=== PATIENT | male | born 1975 | race African-American/Black ===

== ENCOUNTER 2023-04-27 11:49 | Observation (INO) | payer OTHER, SELFPAY ==
--- NOTE | ~2023-04-27 | US_ITS ---
US breast LT complete DATE: 04/27/2023 14:03 INDICATION: Induration and erythema of left subareolar area for 3 to 4 days TECHNIQUE: Real-time and color flow imaging of the subareolar area of the left breast COMPARISON: None FINDINGS: There is a large irregular up to 3.4 cm wide 2 cm deep complex mixed cystic and hypoechoic solid lesion in the subareolar area of the left breast, with through transmission and posterior enhan cement and some surrounding hypervascularity on color flow imaging. The appearance is most consistent with abscess; differential diagnosis includes hematoma. IMPRESSION: Large complex lesion in the subareolar area, suspicious for abscess Dr. Mccall telephoned the ultrasound findings on 04/27/2023 at 1418 hours to emergency room physician Bassem norton Nurse Practitioner. Reviewed, dictated and finalized at [facility]. Reviewed, dictated and finalized at [facility]. IMPRESSION: Large complex lesion in the subareolar area, suspicious for abscess Dr. Mccall telephoned the ultrasound findings on 04/27/2023 at 1418 hours to emerge ncy room physician Radha Nurse Practitioner.
--- NOTE | ~2023-04-27 | US_ITS ---
US guide abscess drainage DATE: 04/28/2023 14:12 INDICATION: Breast abscess TECHNIQUE: The purpose of the procedure, technique and potential complications were discussed with th e patient. The patient indicated understanding and gave consent. Timeout procedure confirmed appropriate patient, birthdate and procedure and sidedness. The skin of the left breast was prepared with sterile Betadine solution. Sterile drapes were applied. Using ultrasound for guidance, 2 different sites were percutaneous access to the abscess cavity were identified. Local anesthetic was a deburr operator the skin. A 16-gauge needle with connecting tube and syri nge was introduced into the 2 different sites, with advancement of the needle into multiple areas at each needle site, with aspiration as possible, yielding several CC of tannish pus. Some hypoechoic ti ssue or debris within the lesion was balloted with the needle but was unable to be aspirated.. Ultrasound imaging upon completion of the aspiration revealed diminished size with incomplete resolut ion of the abscess collection And requested that the fluid be sent laboratory for culture and sensitivity. IMPRESSION: Percutaneous partial drainage of left breast abscess; culture and sensitivity pending Reviewed, dictated and finalized at [facility] Reviewed, dictated and finalized at [facility]. IMPRESSION: Percutaneous partial drainage of left breast abscess; culture and s ensitivity pending
[2023-04-27 12:03] VITALS: BP 135/92; PULSE 89; RESP 17; TEMP 36.5; O2SAT 100
[2023-04-27] MEDS: HYDROcodone/acetaminophen (*CRX) 5-325 MG TABLET 1 TAB PO (14:29)
[2023-04-27 14:45] LABS: Basophils Absolute Auto 0.1 K/mm3 (0.0-0.1); Basophils Percent Auto 0.8 % (0.2-1.2); Eosinophils Absolute Auto 0.1 K/mm3 (0-0.3); Eosinophils Percent Auto 1.3 % (0-4.4); Hematocrit 47.3 % (42.0-52.0); Hemoglobin 15.8 g/dL (14.0-18.0); Immature Granulocyte Absolute 0.03 K/mm3 (0.00-0.031); Immature Granulocyte Percent A 0.5 % (0-0.5); Lymphocytes Percent Auto 28.2 % (18.3-44.2); Mean Corpuscular HGB Conc 33.4 g/dl (32-36); Mean Corpuscular Hemoglobin 33.3 pg (26-34); Mean Corpuscular Volume 99.6 fl (80-100); Mean Platelet Volume 9.9 fl (7.4-10.4); Monocytes Absolute Auto 0.6 K/mm3 (0.1-0.6); Neutrophils Absolute Auto 3.8 K/mm3 (1.3-6.7); Neutrophils Percent Auto 59.2 % (45.5-73.1); Platelet Count Result 207 k/mm3 (150-375); Red Blood Count 4.75 M/mm3 (4.6-6.20); Red Cell Distribution Width 15.6 % (11.5-14.5); White Blood Count 6.4 K/mm3 (4.5-10.0)
--- NOTE | 2023-04-27 14:51 | ED.GENADULT ---
HPI - General Adult General Chief complaint: Skin/Abscess/Foreign Body Stated complaint: possible bug bite Time Seen by Provider: 04/27/23 12:19 History of Present Illness HPI narrative: Yefri Albarran is a 47 y/o male who presents with reports of swelling/ pain to his left breast for 3 days. He denies any trauma/ injury. He thought he might of been bit by something but it has continued to get worse. He reports of sever pain with light touch. Denies any nipple drainage, denies known history of breast CA, denies noticing any drainage from the area since it started. Related Data Home Medications Medication Instructions Recorded Confirmed albuterol sulfate 90 mcg/actuation 2 puff inhalation Q6-8H PRN 04/27/23 04/27/23 aerosol inhaler Shortness Of Breath Or Wheezing aspirin 81 mg chewable tablet 81 mg PO DAILY 04/27/23 04/27/23 atorvastatin 20 mg tablet 20 mg PO DAILY 04/27/23 04/27/23 clopidogrel 75 mg tablet 75 mg PO DAILY 04/27/23 04/27/23 gabapentin 600 mg tablet 300 mg PO BID 04/27/23 04/27/23 isosorbide mononitrate 30 mg 30 mg PO DAILY 04/27/23 04/27/23 tablet,extended release 24 hr metoprolol tartrate 100 mg tablet 100 mg PO BID 04/27/23 04/27/23 Allergies Allergy/AdvReac Type Severity Reaction Status Date / Time No Known Allergies Allergy Verified 04/27/23 17:47 Review of Systems Review of Systems: CONSTITUTIONAL: Denies fever, chills, or sweats. EYES: Denies visual changes, redness, or discharge. ENT: Denies rhinorrhea, congestion, sore throat, or otalgia. CARDIOVASCULAR: Denies chest pain, palpitations, or edema. RESPIRATORY: Denies cough or dyspnea. GASTROINTESTINAL: Denies abdominal pain, nausea, vomiting, or diarrhea. GENITOURINARY: Denies dysuria or hematuria. SKIN: Complains of painful swelling to left breast that he woke up with about 3 days ago. MUSCULOSKELETAL: Denies back pain, joint pain, or myalgia. NEUROLOGIC: Denies headache, numbness, dizziness, or weakness. PSYCHIATRIC: Denies anxiety or depression. [facility] Social History Social History Smoking status: Current some day smoker Tobacco type: cigarettes Alcohol intake: current Drinks per week: 3 Substance use: current Substance use type: marijuana Lack of Transportation: YES Lack of Food: Sometimes True Current Housing: I Do Not Have Housing Concerned About Future Housing: YES Difficulty Paying Gas/Electric Bills: YES Difficulty Paying for Meds: YES Currently Unemployed: YES Education: High School Diploma/GED Difficulty w/ Childcare or Family Care: No Spiritual care concerns: No Exam Narrative: GENERAL: Well-appearing, well-nourished, and in no acute distress. HEAD: Normocephalic, atraumatic. EYES: PERRLA and EOMI. ENT: Nares clear, no rhinorrhea or epistaxis. Mucous membranes moist. Oropharynx without tonsillar hypertrophy exudate or other lesions. Bilateral TMs pearly calderón nonbulging NECK: Supple. No adenopathy or masses. No carotid bruits or JVD CHEST:Left breast tissue swollen with erythema, Clear to auscultation. No respiratory distress. No wheezes rales or rhonchi HEART: Regular rate and rhythm. No murmur heard. Normal peripheral pulses. ABDOMEN: Soft, nontender, nondistended, normal active bowel sounds. EXTREMITIES: Normal range of motion. No edema. SKIN: Warm, dry, no rash, erythema/swelling to skin to left breast behind left nipple area. area is hard no real fluctuance appreciated. NEURO: No focal deficits. Alert and oriented x3. PSYCH: Normal mood and affect. Course Vital Signs Vital signs: Vital Signs Temperature 36.5 C 04/27/23 12:03 Pulse Rate 89 04/27/23 12:03 Respiratory Rate 17 04/27/23 12:03 Blood Pressure 135/92 H 04/27/23 12:03 Pulse Oximetry 100 04/27/23 12:03 Oxygen Delivery Room Air 04/27/23 12:03 Temperature 35.9 C L 04/27/23 17:28 Pulse Rate 69 04/27/23 17:28 Respiratory Rate 18 04/27/23 17:28 Blood Pressure 146/85 H
[2023-04-27 14:55] LABS: Anion Gap 4 mmol/L (8-16); Blood Urea Nitrogen 9 mg/dL (9-20); Calcium 9.1 mg/dL (8.4-10.2); Carbon Dioxide 33 mmol/L (22-30); Chloride 101 mmol/L (98-107); Estimated CRCL calculation 91 ml/min; Estimated Glomerular Filt Rate > 60; Glucose 102 mg/dL (65-110); Potassium 4.3 mmol/L (3.4-5.0); Sodium 138 mmol/L (137-145)
[2023-04-27] MEDS: ceFAZolin 1 GM/NS 50 ML 1 GM/50 ML BAG IVPB (15:38)
[2023-04-27] MEDS: MORPHINE SULFATE (*CRX) 2 MG/ML INJ IV PUSH (15:39)
[2023-04-27 15:44] VITALS: BP 136/92; PULSE 77; RESP 18; TEMP 36.1; O2SAT 99
[2023-04-27 17:04] VITALS: BP 134/87; PULSE 74; RESP 18; TEMP 36.2; O2SAT 98
[2023-04-27 17:28] VITALS: BP 146/85; PULSE 69; RESP 18; TEMP 35.9; O2SAT 100
--- NOTE | 2023-04-27 17:46 | ADMGEN ---
This patient, Yefri Albarran, was admitted to 3 [facility] Surg Room 320-01. Patient/family oriented to hospital policies and general routines including ID bracelet, bed and alarms, visiting hours, pain management, procedures, bathroom and other care routines, personal items, smoking policy, room service/diet, and visiting hours. Information on how to activate the Rapid Response Team has been discussed. Patient/Family are encouraged to report perceived risks to care and to ask questions if they do not understand what they are told or what they should do.
[2023-04-27 20:00] VITALS: PULSE 69; RESP 18; O2SAT 100
[2023-04-27] MEDS: ceFAZolin 2 GM/D5W 50 ML 2 GM/50 ML BAG IVPB (20:26)
[2023-04-27] MEDS: IBUPROFEN IV 800 MG/200 ML 800 MG/200 ML BAG 400 MG IVPB (21:10)
[2023-04-27] MEDS: traZODone HCL 50 MG TABLET PO (21:10)
[2023-04-27 21:42] VITALS: BP 151/90; PULSE 66; RESP 18; TEMP 36.7; O2SAT 98
--- NOTE | 2023-04-28 03:34 | PM.IMHP ---
H&P: HPI History of Present Illness Date/Time: 04/27/23 2300 Chief Complaint: skin abscess Narrative: this is a 47-year-old male patient who came into the emergency room to be evaluated for pain and swelling to the left breast area around the nipple line. The patient denies any trauma or injury. The patient thinks that he might have gotten bit by a bug. This area became edematous and red within 3 days. The nipple is inverted due to the swelling. He has no family history of any breast cancer. The patient stated that he did use warm soaks on it and feels that he may have burned the skin a little bit. The patient stated he was trying to get the abscess to drain on its own. His white count is normal. His blood pressure is elevated 151/90. His pulse is 66 and he is afebrile. The patient does not appear to be septic. Breast ultrasound was read as the following Large complex lesion in the subareolar area, suspicious for abscess?. Surgery has been consulted. The patient was given morphine [place] and started on Ancef. The patient is being admitted to observation status on the date of service of 04/27/2023. Review of Systems Review of Systems: All systems reviewed & are unremarkable except as noted in HPI and below Constitutional: Constitutional: Reports as per HPI and Reports no additional constitutional complaints Eyes: Eyes: Reports as per HPI and Reports no additional eye complaints ENT: Reports system reviewed and no additional complaints, except as documented and Reports Normal hearing present Cardiovascular: Cardiovascular: Reports no additional cardiovascular complaints Respiratory: Respiratory: Reports no additional respiratory complaints and Reports no additional respiratory complaints Gastrointestinal: Gastrointestinal: Reports as per HPI and Reports no additional gastrointestinal complaints Musculoskeletal: Musculoskeletal: Reports no additional musculoskeletal complaints Integumentary/Breasts: Skin/Breast: Reports system reviewed and no additional complaints, except as docu and Reports as per HPI Neurologic: Reports system reviewed and no additional complaints, except as documented, Reports as per HPI and Reports Normal hearing present Psychiatric: Psychiatric: Reports no additional psychiatric complaints and Reports as per HPI Endocrine: Endocrine: Reports no additional endocrine complaints Hematologic/Lymphatic: Hematologic/Lymphatic: Reports no additional hematologic/lymphatic complaints Allergic/Immunologic: Allergic/Immunologic: Reports no additional allergic/immunologic complaints [facility] Past Medical History Medical History (Updated 04/28/23 @ 03:40 by Aleja Isaac NP) CAD (coronary artery disease) Hyperlipidemia Hypertension Surgical History Surgical History (Updated 04/28/23 @ 03:40 by Aleja Isaac NP) S/P CABG x 2 Family History Family History (Updated 04/28/23 @ 03:41 by Aleja Isaac NP) Mother Diabetes mellitus Grandparent Diabetes mellitus Social History Social History (Updated 04/28/23 @ 03:42 by Aleja Isaac NP) Social History: the patient stated that he is single and he has 8 children. 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 The patient smokes a few cigarettes a day. the patient smokes around 4 cigarettes a day. He does smoke marijuana as well. And is not interested in smoking cessation. Social drinker code status full code Smoking status: Current some day smoker Tobacco type: cigarettes Alcohol intake: current Drinks per week: 3 Substance use: current Substance use type: marijuana Lack of Transportation: YES Lack of Food: Sometimes True Current Housing: I Do Not Have Housing Concerned About Future Housing: YES Difficulty Paying Gas/Electric Bills: YES Difficulty Paying for Meds: YES Currently Unemployed: YES Education: High School Diploma/GED Difficulty w/ Childcare or Family Care: No
[2023-04-28] MEDS: ceFAZolin 2 GM/D5W 50 ML 2 GM/50 ML BAG IVPB ×3 (04:44→18:19)
[2023-04-28] MEDS: MORPHINE SULFATE (*CRX) 2 MG/ML INJ IV PUSH ×2 (05:30→20:50)
[2023-04-28 06:00] VITALS: BP 148/88; PULSE 63; RESP 18; TEMP 36.6; O2SAT 98
[2023-04-28 06:44] LABS: Hematocrit 44.6 % (42.0-52.0); Hemoglobin 14.9 g/dL (14.0-18.0); Mean Corpuscular HGB Conc 33.4 g/dl (32-36); Mean Corpuscular Hemoglobin 33.2 pg (26-34); Mean Corpuscular Volume 99.3 fl (80-100); Mean Platelet Volume 9.6 fl (7.4-10.4); Platelet Count Result 184 k/mm3 (150-375); Red Blood Count 4.49 M/mm3 (4.6-6.20); Red Cell Distribution Width 15.4 % (11.5-14.5)
[2023-04-28 06:58] LABS: Anion Gap 8 mmol/L (8-16); Blood Urea Nitrogen 10 mg/dL (9-20); Calcium 8.7 mg/dL (8.4-10.2); Carbon Dioxide 25 mmol/L (22-30); Chloride 103 mmol/L (98-107); Estimated CRCL calculation 82 ml/min; Estimated Glomerular Filt Rate > 60; Glucose 101 mg/dL (65-110); Sodium 136 mmol/L (137-145)
[2023-04-28 08:00] VITALS: O2SAT 98
--- NOTE | 2023-04-28 12:37 | PM.IMPN ---
Progress Note: A&P Assessment and Plan (1) Abscess of breast, left: Code(s): N61.1 - Abscess of the breast and nipple Status: Acute Assessment and Plan: Continue Ancef started 04/27, follow-up blood cultures Appreciate surgery consultation, may need further care for I&D (2) Hypertension: Code(s): I10 - Essential (primary) hypertension Status: Acute Assessment and Plan: Continue with metoprolol on isosorbide Blood pressures reviewed 04/28 (3) Hyperlipidemia: Code(s): E78.5 - Hyperlipidemia, unspecified Status: Acute Assessment and Plan: Continue with atorvastatin. (4) CAD (coronary artery disease): Code(s): I25.10 - Atherosclerotic heart disease of [place] coronary artery without angina pectoris Status: Chronic Assessment and Plan: Continue with aspirin atorvastatin and metoprolol. He is also on Plavix. (5) Anxiety: Code(s): F41.9 - Anxiety disorder, unspecified Status: Acute Assessment and Plan: Extreme restlessness, anxiety and depression, Ativan 0.5 mg p.o. x1, initiate Remeron 15 mg q.h.s. Discontinue gabapentin Plan DVT prophylaxis with SCDs GI prophylaxis not indicated Code status full code Subjective Date/time seen: 04/28/23 12:37 Interval history: 47-year-old male here with past medical history significant for heart disease with history of CABG x2, hypertension, hyperlipidemia abscess of left breast status post ultrasound-guided drainage 04/28 being treated for cellulitis/abscess. No overnight events noted. No chest pain or shortness of breath. No nausea, vomiting or diarrhea. No fevers or chills. S/p US guided abscess drainage today of left breast abscess. Patient is very restless, pacing the hospital. Review of Systems Review of Systems: 12 point review of systems was assessed and was negative except as noted in the HPI Exam Narrative: General: No acute distress, alert and oriented per baseline HEENT: Atraumatic, normocephalic, mucous membranes moist CV: Regular rate and rhythm, S1, S2 Lungs: Clear to auscultation bilaterally, no rales or crackles noted, no wheezes, good air entry Chest: Area on left breast covered in bandage, clean/dry/intact, area of firm fluctuance noted on left upper quadrant, no drainage Abdomen: Soft, nontender, nondistended Extremities: Normal to inspection Skin: No rashes noted, no lesions or wounds seen Psych: Extremely restless and anxious, occasionally tearful Objective Data Vital Signs Vital Signs: Vital Signs - 24 hr 04/27/23 15:44 04/27/23 17:04 04/27/23 17:28 Temperature 97.0 F L 97.2 F L 96.6 F L Pulse Rate 77 74 69 Respiratory Rate 18 18 18 Blood Pressure 136/92 H 134/87 146/85 H Pulse Oximetry 99 98 100 Oxygen Delivery 04/27/23 20:00 04/27/23 21:42 04/28/23 06:00 Temperature 98.1 F 98 F Pulse Rate 69 66 63 Respiratory Rate 18 18 18 Blood Pressure 151/90 H 148/88 H Pulse Oximetry 100 98 98 Oxygen Delivery Room Air 04/28/23 08:00 Temperature Pulse Rate Respiratory Rate Blood Pressure Pulse Oximetry 98 Oxygen Delivery Room Air Intake/Output Intake/Output: Intake & Output 04/25/23 04/26/23 04/27/23 04/28/23 23:59 23:59 23:59 23:59 Intake Total 300 225 Balance 300 225 Meds/Results Medications: Active Medications Generic Name Dose Route Start Last Admin Trade Name Freq PRN Reason Stop Dose Admin Acetaminophen 500 mg 04/27/23 19:54 Acetaminophen 500 Mg Tablet PO Q6H PRN Mild Pain (1-3) or Fever Albuterol 2 puff 04/28/23 03:39 Albuterol Sulfate (*Sp) Aerosol 1 Puff INHALATION Q6-8H PRN Shortness Of Breath Or Wheezing Aspirin 81 mg 04/28/23 08:00 Aspirin 81 Mg Chewable Tablet PO DAILY@0800 [facility] Atorvastatin Calcium 20 mg 04/28/23 09:00 Atorvastatin 20 Mg Tablet PO DAILY [facility] Clopidogrel Bisulfate 75 mg
[2023-04-28 14:00] VITALS: BP 140/83; PULSE 96; RESP 16; TEMP 36.6; O2SAT 99
[2023-04-28 14:54] VITALS: PULSE 100
[2023-04-28] MEDS: ATORVASTATIN 20 MG TABLET PO (14:54)
[2023-04-28] MEDS: ISOSORBIDE MONONITRATE 30 MG TAB.ER.24H PO (14:54)
[2023-04-28] MEDS: GABAPENTIN 300 MG CAPSULE PO (14:54)
[2023-04-28] MEDS: METOPROLOL TARTRATE 50 MG TAB 100 MG PO ×2 (14:54→20:49)
[2023-04-28] MEDS: CLOPIDOGREL BISULFATE 75 MG TABLET PO (14:54)
[2023-04-28] MEDS: ASPIRIN 81 MG CHEWABLE TABLET PO (14:55)
--- NOTE | 2023-04-28 15:29 | PM.CNGS ---
Assessment and Plan Assessment and plan (1) Abscess of breast, left: Code(s): N61.1 - Abscess of the breast and nipple Status: Acute Assessment and Plan: Will start IV Ancef and observe overnight. If worse or no improvement, will discuss ultrasound-guided abscess with radiologist tomorrow. (2) CAD (coronary artery disease): Qualifiers: Coronary Disease-Associated Artery/Lesion type: [place] artery [place] vs. transplanted heart: [place] heart Associated angina: unspecified whether angina present Qualified Code(s): I25.10 - Atherosclerotic heart disease of [place] coronary artery without angina pectoris Code(s): I25.10 - Atherosclerotic heart disease of [place] coronary artery without angina pectoris Status: Chronic (3) Antiplatelet or antithrombotic long-term use: Code(s): Z79.02 - group home (current) use of antithrombotics/antiplatelets Status: Chronic History of Present Illness Consult details Consult date: 04/27/23 Reason for consult: other (LEFT BREAST PAIN AND SWELLING) Requesting physician: Radha Wheat APRN Narrative: The patient is a 47-year-old man who came to the emergency room on 04/27/2023 with a complaint of left breast pain and swelling that started on April 24. It gradually worsened and on April 26, he went to the emergency room at [address] [place] [address]. He was given oral antibiotics but did not take these. The next day, the left breast was more swollen and sore any came to our emergency room, 04/27/2023. He was noted to have swollen tender slightly erythematous left assist directly under the nipple areola complex. He had an ultrasound which showed a complex heterogeneous subareolar mass most consistent with a breast abscess this. He was admitted and started on IV antibiotics. I saw him last night, 04/27/2023. Consult not dictated until today 04/28/2023 after follow-up visit was performed. The left breast was about 6 x 6 cm area of swelling with some fluctuance under the nipple. I discussed possible management plans including aspiration and possibly surgical incision and drainage if simply antibiotics did not result in improvement. Review of Systems Review of Systems: All systems reviewed & are unremarkable except as noted in HPI and below (HPI and those items noted below) Constitutional: Constitutional: Denies chills and Denies fever(s) Cardiovascular: Cardiovascular: Denies chest pain, Denies diaphoresis, Denies dyspnea and Denies paroxysmal nocturnal dyspnea Comments: History of coronary artery bypass grafting and does take Plavix. Respiratory: Respiratory: Denies chest congestion, Denies cough and Denies dyspnea Integumentary/Breasts: Skin/Breast: Reports breast swelling, Reports breast pain, Denies lesions and Denies rash PMFSH Past Medical History Medical History (Updated 04/28/23 @ 15:39 by Placido Devi MD) CAD (coronary artery disease) Hyperlipidemia Hypertension Surgical History Surgical History (Updated 04/28/23 @ 03:40 by Aleja Isaac NP) S/P CABG x 2 Family History Family History (Updated 04/28/23 @ 03:41 by Aleja Isaac NP) Mother Diabetes mellitus Grandparent Diabetes mellitus Social History Social History (Updated 04/28/23 @ 03:42 by Aleja Isaac NP) Social History: the patient stated that he is single and he has 8 children. 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 The patient smokes a few cigarettes a day. the patient smokes around 4 cigarettes a day. He does smoke marijuana as well. And is not interested in smoking cessation. Social drinker code status full code Smoking status: Current some day smoker Tobacco type: cigarettes Alcohol intake: current Drinks per week: 3 Substance use: current Substance use type: marijuana Lack of Transportation: YES Lack of Food: Sometimes True Current Housing: I Do Not Have Housing Concerned About Fu
--- NOTE | 2023-04-28 15:40 | PM.PNGS ---
Progress Note: A&P Assessment and Plan (1) Abscess of breast, left: Code(s): N61.1 - Abscess of the breast and nipple Status: Acute Assessment and Plan: Persistent pain with probably worsened swelling and larger abscess than last night. I discussed this with Dr. Mccall, radiologist. He agrees to go ahead with ultrasound-guided aspiration of left breast abscess. Continue IV Ancef. Hopefully will improve with aspiration. If not, surgical drainage with biopsy may be necessary. Subjective Subjective Date/Time Seen: 04/28/23 15:40 Patient reports: still having pain (Left breast no better after antibiotics overnight.) and afebrile Review of Systems Review of Systems: All systems reviewed & are unremarkable except as noted in HPI and below (HPI and those items noted below) Constitutional: Constitutional: Denies chills and Denies fever(s) Cardiovascular: Cardiovascular: Denies chest pain, Denies diaphoresis, Denies dyspnea and Denies paroxysmal nocturnal dyspnea Respiratory: Respiratory: Denies chest congestion, Denies cough and Denies dyspnea Integumentary/Breasts: Skin/Breast: Denies lesions and Denies rash Exam Const: General: comfortable and no acute distress Orientation/consciousness: patient oriented x3 Chest: Breast/axilla inspection: abnormal inspection of the breast (Left breast more swollen still has erythema) Breast/axilla palpation: abnormal palpation of the breast (Tender with fluctuance sub areola are left breast) Neuro: General: patient oriented x3 and no focal motor deficits Extrem: General: no calf tenderness and no edema Psych: Affect: normal affect Insight: Good insight present (Psych) Judgement: Good judgement present (Psych) Objective Data Vital Signs Vital Signs: Vital Signs - 24 hr 04/27/23 15:44 04/27/23 17:04 04/27/23 17:28 Temperature 36.1 C L 36.2 C L 35.9 C L Pulse Rate 77 74 69 Respiratory Rate 18 18 18 Blood Pressure 136/92 H 134/87 146/85 H Pulse Oximetry 99 98 100 Oxygen Delivery 04/27/23 20:00 04/27/23 21:42 04/28/23 06:00 Temperature 36.7 C 36.6 C Pulse Rate 69 66 63 Respiratory Rate 18 18 18 Blood Pressure 151/90 H 148/88 H Pulse Oximetry 100 98 98 Oxygen Delivery Room Air 04/28/23 08:00 04/28/23 14:54 04/28/23 14:00 Temperature 36.6 C Pulse Rate 100 96 Respiratory Rate 16 Blood Pressure 140/83 Pulse Oximetry 98 99 Oxygen Delivery Room Air Intake/Output Intake/Output: Intake & Output 04/25/23 04/26/23 04/27/23 04/28/23 23:59 23:59 23:59 23:59 Intake Total 300 225 Output Total 3 Balance 300 222 Meds/Results Medications: Active Medications Generic Name Dose Route Start Last Admin Trade Name Freq PRN Reason Stop Dose Admin Acetaminophen 500 mg 04/27/23 19:54 Acetaminophen 500 Mg Tablet PO Q6H PRN Mild Pain (1-3) or Fever Albuterol 2 puff 04/28/23 03:39 Albuterol Sulfate (*Sp) Aerosol 1 Puff INHALATION Q6-8H PRN Shortness Of Breath Or Wheezing Aspirin 81 mg 04/28/23 08:00 04/28/23 14:55 Aspirin 81 Mg Chewable Tablet PO 81 mg DAILY@0800 JACQUES Administration Atorvastatin Calcium 20 mg 04/28/23 09:00 04/28/23 14:54 Atorvastatin 20 Mg Tablet PO 20 mg DAILY JACQUES Administration Clopidogrel Bisulfate 75 mg 04/28/23 09:00 04/28/23 14:54 Clopidogrel Bisulfate 75 Mg Tablet PO 75 mg DAILY JACQUES Administration Gabapentin 300 mg 04/28/23 09:00 04/28/23 14:54 Gabapentin 300 Mg Capsule PO 300 mg BID JACQUES Administration Cefazolin Sodium 2 gm in 50 mls @ 100 mls/hr 04/27/23 20:00 04/28/23 14:53 Ancef 2 Gm/D5w 50 Ml IVPB 100 mls/hr Q8H JACQUES Administration Ibuprofen 800 mg in 200 mls @ 400 mls/hr 04/27/23 19:54 04/27/23 21:40 Caldolor 800 Mg/200 Ml IVPB Infused Q6H PRN Infusion Pain Rated 4-6 Isosorbide Mononitrate 30 mg 04/28/23 09:00 04/28/23 14:54 Isosorbide Mononitrate 30 Mg Tab.Er.24h PO 30 mg MATT
[2023-04-28] MEDS: LORazepam (*CRX) 0.5 MG TABLET PO (18:18)
[2023-04-28 20:00] VITALS: PULSE 77; RESP 18; O2SAT 99
[2023-04-28] MEDS: MIRTAZAPINE 15 MG TABLET PO (20:49)
[2023-04-28] MEDS: ACETAMINOPHEN 500 MG TABLET PO (20:49)
[2023-04-28 22:00] VITALS: BP 135/90; PULSE 77; RESP 20; TEMP 36.6; O2SAT 99
[2023-04-29] MEDS: ceFAZolin 2 GM/D5W 50 ML 2 GM/50 ML BAG IVPB ×2 (04:03→12:11)
[2023-04-29 06:00] VITALS: BP 127/79; PULSE 71; RESP 16; TEMP 35.9; O2SAT 99
[2023-04-29 08:00] VITALS: PULSE 90; RESP 16; O2SAT 99
[2023-04-29 08:07] VITALS: PULSE 90
[2023-04-29] MEDS: ISOSORBIDE MONONITRATE 30 MG TAB.ER.24H PO (08:07)
[2023-04-29] MEDS: METOPROLOL TARTRATE 50 MG TAB 100 MG PO (08:07)
[2023-04-29] MEDS: ASPIRIN 81 MG CHEWABLE TABLET PO (08:07)
[2023-04-29] MEDS: ATORVASTATIN 20 MG TABLET PO (08:08)
[2023-04-29] MEDS: CLOPIDOGREL BISULFATE 75 MG TABLET PO (08:08)
[2023-04-29] MEDS: MORPHINE SULFATE (*CRX) 2 MG/ML INJ IV PUSH ×2 (08:08→12:19)
[2023-04-29 09:31] VITALS: O2SAT 99
--- NOTE | 2023-04-29 11:04 | PM.PNGS ---
Progress Note: A&P Assessment and Plan (1) Abscess of breast, left: Code(s): N61.1 - Abscess of the breast and nipple Status: Acute Assessment and Plan: Improved after ultrasound-guided drainage yesterday. Cultures are pending. Okay to change to oral antibiotics and discharge. I will see him back in the office on this week. Subjective Subjective Date/Time Seen: 04/29/23 11:04 Patient reports: feels better, pain is less and afebrile Review of Systems Review of Systems: All systems reviewed & are unremarkable except as noted in HPI and below (HPI) Exam Chest: Breast/axilla inspection: abnormal inspection of the breast (Decreased swelling of left breast, less erythematous) Breast/axilla palpation: abnormal palpation of the breast (Induration left breast but no fluctuance. Less tender) Objective Data Vital Signs Vital Signs: Vital Signs - 24 hr 04/28/23 14:54 04/28/23 14:00 04/28/23 20:00 Temperature 36.6 C Pulse Rate 100 96 77 Respiratory Rate 16 18 Blood Pressure 140/83 Pulse Oximetry 99 99 Oxygen Delivery Room Air Fraction of Inspired Oxygen 04/28/23 22:00 04/29/23 06:00 04/29/23 08:07 Temperature 36.6 C 35.9 C L Pulse Rate 77 71 90 Respiratory Rate 20 16 Blood Pressure 135/90 127/79 Pulse Oximetry 99 99 Oxygen Delivery Fraction of Inspired Oxygen 04/29/23 09:31 Temperature Pulse Rate Respiratory Rate Blood Pressure Pulse Oximetry 99 Oxygen Delivery Room Air Fraction of Inspired Oxygen 21 Intake/Output Intake/Output: Intake & Output 04/26/23 04/27/23 04/28/23 04/29/23 23:59 23:59 23:59 23:59 Intake Total 300 950 830 Output Total 6 Balance 300 944 830 Meds/Results Medications: Active Medications Generic Name Dose Route Start Last Admin Trade Name Freq PRN Reason Stop Dose Admin Acetaminophen 500 mg 04/27/23 19:54 04/28/23 20:49 Acetaminophen 500 Mg Tablet PO 500 mg Q6H PRN Administration Mild Pain (1-3) or Fever Albuterol 2 puff 04/28/23 03:39 Albuterol Sulfate (*Sp) Aerosol 1 Puff INHALATION Q6-8H PRN Shortness Of Breath Or Wheezing Aspirin 81 mg 06/03/23 08:00 04/29/23 08:07 Aspirin 81 Mg Chewable Tablet PO 81 mg DAILY@0800 JACQUES Administration Atorvastatin Calcium 20 mg 04/28/23 09:00 04/29/23 08:08 Atorvastatin 20 Mg Tablet PO 20 mg DAILY JACQUES Administration Clopidogrel Bisulfate 75 mg 04/28/23 09:00 04/29/23 08:08 Clopidogrel Bisulfate 75 Mg Tablet PO 75 mg DAILY JACQUES Administration Cefazolin Sodium 2 gm in 50 mls @ 100 mls/hr 04/27/23 20:00 04/29/23 04:33 Ancef 2 Gm/D5w 50 Ml IVPB Infused Q8H JACQUES Infusion Ibuprofen 800 mg in 200 mls @ 400 mls/hr 04/27/23 19:54 04/27/23 21:40 Caldolor 800 Mg/200 Ml IVPB Infused Q6H PRN Infusion Pain Rated 4-6 Isosorbide Mononitrate 30 mg 04/28/23 09:00 04/29/23 08:07 Isosorbide Mononitrate 30 Mg Tab.Er.24h PO 30 mg DAILY JACQUES Administration Metoprolol Tartrate 100 mg 04/28/23 09:00 04/29/23 08:07 Metoprolol Tartrate 50 Mg Tab PO 100 mg Q12HR JACQUES Administration Mirtazapine 15 mg 04/28/23 21:00 04/28/23 20:49 Mirtazapine 15 Mg Tablet PO 15 mg HS JACQUES Administration Morphine Sulfate 2 mg 04/27/23 19:54 04/29/23 08:08 Morphine Sulfate (*Crx) 2 Mg/Ml Inj IV PUSH 2 mg Q2H PRN Administration Pain Rated 7-10 Radiology Results: ITS Impressions Breast Ultrasound 04/27/23 14:06 IMPRESSION: Large complex lesion in the subareolar area, suspicious for abscess Dr. Mccall telephoned the ultrasound findings on 04/27/2023 at 1418 hours to emergency room physician Radha, Nurse Practitioner. Abscess Drainage Ultrasound 04/28/23 15:35 IMPRESSION: Percutaneous partial drainage of left breast abscess; culture and sensitivity pending
--- NOTE | 2023-04-29 12:22 | PM.DS ---
DS: Admitting Diagnosis Discharge Date April 29, 2023 Admitting Diagnosis Breast abscess DS: Discharge Diagnosis Discharge Diagnosis (1) Abscess of breast, left: Code(s): N61.1 - Abscess of the breast and nipple Status: Acute Assessment and Plan: Continue Ancef started 04/27, follow-up blood cultures Appreciate surgery consultation, may need further care for I&D (2) Hypertension: Code(s): I10 - Essential (primary) hypertension Status: Acute Assessment and Plan: Continue with metoprolol on isosorbide Blood pressures reviewed 04/28 (3) Hyperlipidemia: Code(s): E78.5 - Hyperlipidemia, unspecified Status: Acute Assessment and Plan: Continue with atorvastatin. (4) CAD (coronary artery disease): Qualifiers: Associated angina: unspecified whether angina present Coronary Disease-Associated Artery/Lesion type: [place] artery [place] vs. transplanted heart: [place] heart Qualified Code(s): I25.10 - Atherosclerotic heart disease of [place] coronary artery without angina pectoris Code(s): I25.10 - Atherosclerotic heart disease of [place] coronary artery without angina pectoris Status: Chronic Assessment and Plan: Continue with aspirin atorvastatin and metoprolol. He is also on Plavix. (5) Anxiety: Code(s): F41.9 - Anxiety disorder, unspecified Status: Acute Assessment and Plan: Extreme restlessness, anxiety and depression, Ativan 0.5 mg p.o. x1, initiate Remeron 15 mg q.h.s. Discontinue gabapentin Plan DVT prophylaxis with SCDs GI prophylaxis not indicated Code status full code DS: Summary Hospital Course Hospital Course: 47-year-old male here with past medical history significant for heart disease with history of CABG x2, hypertension, hyperlipidemia abscess of left breast status post ultrasound-guided drainage 04/28 being treated for cellulitis/abscess. Extreme restlessness, anxiety and depression, Ativan 0.5 mg p.o. x1, initiate Remeron 15 mg q.h.s. Discontinue gabapentin Ultrasound-guided I&D performed. Cultures taken. Discharged on oral antibiotics with close outpatient follow-up by surgery in the office. Please see above and med rec for details. Time Spent with Patient Time attestation: Total time spent providing and/or coordinating discharge services: Exam Narrative: General: No acute distress, alert and oriented per baseline HEENT: Atraumatic, normocephalic, mucous membranes moist CV: Regular rate and rhythm, S1, S2 Lungs: Clear to auscultation bilaterally, no rales or crackles noted, no wheezes, good air entry Chest: Area on left breast covered in bandage, clean/dry/intact, area of firm fluctuance noted on left upper quadrant, no drainage Abdomen: Soft, nontender, nondistended Extremities: Normal to inspection Skin: No rashes noted, no lesions or wounds seen Psych: Extremely restless and anxious, occasionally tearful DS: Data Data Completed and Pending Labs on day of discharge: Preliminary micro results at discharge 04/28/23 06:20 Blood Culture - Preliminary Blood 04/28/23 06:20 Blood Culture - Preliminary Blood Discharge Plan Discharge Attending physician on discharge: Tenisha Villarreal Consulting providers: Plcaido Devi; Aleja Isaac; Smith Mccall Discharging Clinician: Tenisha Villarreal Patient Disposition: Home, Self-Care Activity: may shower and as tolerated Diet: regular Wound Care Instructions: incision open to air Discharge Instructions: Okay to bathe or shower, wash left breast with soap and water Call Dr. Bear office if any increase in pain or swelling left breast, otherwise see him in the office on , 05/03/2023 Patient Instructions: Antibiotic Form Stand Alone Forms: General Discharge Information Follow-up/Referrals: Placido Devi MD [Physician] - 05/03/23 (Call Dr. Bear office to make marty
== END 2023-04-29 13:50 | disposition home or self-care (01) ==
LOC: ANHED 12:59 → ANH3MEDSUR 04-29 12:22
PROVIDERS: Surgery; Admitting Provider Chiropractor; Emergency Provider Nurse Practitioner Family; Visit Provider Student in an Organized Health Care Education/Training Program
DX: A49.01 Methicillin susceptible Staphylococcus aureus infection, unspecified site (principal); N61.1 Abscess of the breast and nipple; I10 Essential (primary) hypertension; E78.5 Hyperlipidemia, unspecified; I25.10 Atherosclerotic heart disease of native coronary artery without angina pectoris; Z95.1 Presence of aortocoronary bypass graft; F41.9 Anxiety disorder, unspecified; F10.90 Alcohol use, unspecified, uncomplicated; F17.210 Nicotine dependence, cigarettes, uncomplicated; F12.90 Cannabis use, unspecified, uncomplicated; Z79.51 Long term (current) use of inhaled steroids; Z79.82 Long term (current) use of aspirin; Z79.01 Long term (current) use of anticoagulants; Z79.02 Long term (current) use of antithrombotics/antiplatelets; Z79.899 Other long term (current) drug therapy
CPT/HCPCS: 10160; 36415; 76641; 80048; 85025; 85027; 87040; 87070; 87075; 87147; 87186; 87205; 96365; 96367; 96375; 96376; 99285; A9270; G0378; G0379; J0690; J1741; J2270